=== PATIENT | female | born 1950 | race Caucasian/White ===

== ENCOUNTER → 2024-11-10 | Outpatient (CLI) | payer OTHER, SELFPAY ==
--- NOTE | 2024-11-10 11:21 | XR_ITS ---
Examination: Wrist, left 3 views Technique: Wrist AP, oblique, lateral 3 views Date and time of exam: November 10, 2024 1306 hours INDICATIONS: Left wrist pain beginning 6 months ago. FINDINGS: Severe osteopenia Advanced narrowing first carpometacarpal joint Mild narrowing radiocarpal joint No fracture No opaque foreign bodies IMPRESSION: Advanced narrowing first carpometacarpal joint
--- NOTE | 2024-11-10 11:30 | XR_ITS ---
Examination: Ultrasound soft tissue left extremity TECHNIQUE: Grayscale sonographic images soft tissue left arm Exam date and time: November 10, 2024 1122 hours INDICATIONS: Pain and swelling palpable lump posterior left wrist note is beginning 6 months ago after shoulder fracture FINDINGS: No cystic or solid mass noted at the area concern IMPRESSION: No cystic or solid mass noted at the area concern, as clinically warranted, consider MRI right wrist without contrast follow-up
== END | disposition home or self-care (01) ==
PROVIDERS: PCP Nurse Practitioner Family; Referring Provider Nurse Practitioner Family; Visit Provider Nurse Practitioner Family
DX: S50.02XD Contusion of left elbow, subsequent encounter (principal); M25.832 Other specified joint disorders, left wrist; X58.XXXD Exposure to other specified factors, subsequent encounter
CPT/HCPCS: 73110; 76882

== ENCOUNTER → 2024-11-30 | Outpatient (CLI) | payer MEDICARE, BC, SELFPAY ==
--- NOTE | 2024-11-30 10:30 | XR_ITS ---
Examination: PA lateral chest 2 views TECHNIQUE: Upright PA lateral chest 2 views Exam date and time: November 30, 2024 1104 hours Comparison May 18, 2023 INDICATIONS: Coughing shortness of breath beginning 5 days ago FINDINGS: Partial visualization fracture humeral neck on the left, please see the shoulder report June 08, 2024 Mild heart failure, mild enlargement cardiac contour prominent vascular congestion or early perihilar edema Superimposed pneumonia in the right lung diffusely and left base IMPRESSION: Significant bilateral pneumonia Mild heart failure
== END | disposition home or self-care (01) ==
LOC: CDIM 10:17
PROVIDERS: PCP Nurse Practitioner Family; Referring Provider Nurse Practitioner Family; Visit Provider Nurse Practitioner Family
DX: J18.9 Pneumonia, unspecified organism (principal); I50.9 Heart failure, unspecified
CPT/HCPCS: 71046

== ENCOUNTER → 2024-12-08 | Outpatient (CLI) | payer OTHER, SELFPAY ==
--- NOTE | 2024-12-08 12:30 | XR_ITS ---
Examination: MRI left wrist, without contrast Date and time of exam: December 08, 2024 1225 hours INDICATIONS: Patient fell 7 months ago with injury to the wrist, persistent wrist pain numbness weakness Technique: Multiple axial sagittal and coronal images of the left wrist have been obtained with the Siemens high-resolution 1.5 Ebony MRI scanner. Images obtained include T2-weighted fat-suppressed sagittal sections, TR 3500, TE 46, T2 weighted coronal fat suppressed images, TR 3050, TE 84, T2-weighted transverse fat suppressed images, TR 3260, TE 63, proton density transverse images, TR 4720 TE 46, and T1 weighted coronal images, TR 560, TE 13. Findings: Advanced narrowing radiocarpal and intercarpal joints Moderate to advanced osteoarthritis first carpometacarpal joint Triangular fibrocartilage appears intact Cystic change in the navicular No occult fracture No ganglion cyst Flexor tendons unremarkable normal median nerve Extensor tendons intact IMPRESSION: Advanced narrowing radiocarpal and intercarpal joints Moderate to advanced osteoarthritis first carpometacarpal joint
== END | disposition home or self-care (01) ==
LOC: SMRI 11:55
PROVIDERS: PCP Nurse Practitioner Family; Referring Provider Nurse Practitioner Family; Visit Provider Nurse Practitioner Family
DX: M25.832 Other specified joint disorders, left wrist (principal); M18.12 Unilateral primary osteoarthritis of first carpometacarpal joint, left hand
CPT/HCPCS: 73221

== ENCOUNTER → 2024-12-18 | Outpatient (CLI) | payer MEDICARE, BC, SELFPAY ==
--- NOTE | 2024-12-18 16:43 | XR_ITS ---
Examination: PA lateral chest 2 views TECHNIQUE: Upright PA and lateral chest 2 views Date time: December 18, 2024 1704 hours Comparison November 30, 2024 INDICATIONS: Congestion 2 weeks, pneumonia on chest film November 30, 2024 FINDINGS: Mild pneumonia remains at the lung bases Mild enlargement cardiac contour Scarring versus atelectasis in the right lung Prominent osteopenia with old appearing fracture of the left humeral neck IMPRESSION: Mild bibasilar pneumonia remains No donovan pulmonary edema
== END | disposition home or self-care (01) ==
PROVIDERS: PCP Nurse Practitioner Family; Referring Provider Nurse Practitioner Family; Visit Provider Nurse Practitioner Family
DX: J15.9 Unspecified bacterial pneumonia (principal)
CPT/HCPCS: 71046

== ENCOUNTER → 2024-12-29 | Outpatient (CLI) | payer MEDICARE, BC, SELFPAY ==
[2024-12-29 09:44] LABS: Glucose Estimated Average 186 mg/dL (80-131); Hemoglobin A1C 8.1 % Hgb (4.8-6.0)
[2024-12-29 09:45] LABS: Basophils # (Auto) 0.1 Thou/mm3 (0.0-0.2); Basophils % (Auto) 1 % (0-2.5); Eosinophils # (Auto) 0.4 Thou/mm3 (0.0-0.5); Eosinophils % (Auto) 5 % (0-10); Hematocrit 38.2 % (36.0-46.0); Hemoglobin 12.7 g/dL (12.0-16.0); Immature Granulocytes % (Auto) 0 % (0-0); Immature Granulocytes Auto 0.02 Thou/mm3 (0.00-0.00); Lymphocytes # (Auto) 1.6 Thou/mm3 (1.0-4.8); Lymphocytes % (Auto) 25 % (10-50); Mean Corpuscular HGB Conc 33.2 g/dl (31.0-37.0); Mean Corpuscular Hemoglobin 29.1 pg (25.0-35.0); Mean Corpuscular Volume 88 fL (80-100); Monocytes # (Auto) 0.4 Thou/mm3 (0.0-0.8); Monocytes % (Auto) 7 % (0-12); Neutrophils # (Auto) 4.1 Thou/mm3 (1.8-7.7); Neutrophils % (Auto) 62 % (37-80); Nucleated Red Blood Cell % 0 /100 WBC (0); Platelet Count 207 Thou/mm3 (140-440); RDW Standard Deviation 42.5 fL (36.4-46.3); Red Blood Count 4.36 Miln/mm3 (4.00-5.20); White Blood Count 6.6 Thou/mm3 (3.6-11.0)
[2024-12-29 09:47] LABS: Vitamin B12 471 pg/mL (211-911); Vitamin D 25 Hydroxy Total 41.3 ng/mL (7.3-40.2)
[2024-12-29 09:55] LABS: Alanine Aminotransferase 17 U/L (10-49); Albumin, Serum 3.8 gm/dL (3.4-4.8); Albumin/Globulin Ratio 1.5 (1.2-2.2); Alkaline Phosphatase 69 U/L (46-116); Anion Gap 9 (7-16); Aspartate Amino Transferase 16 U/L (0-34); BUN/Creatinine Ratio 18 Ratio (12-20); Bilirubin,Total 0.6 mg/dL (0.3-1.2); Blood Urea Nitrogen 14 mg/dL (9-23); Calcium (Corrected) 9.2 mg/dL (8.5-10.1); Carbon Dioxide 28.2 mMol/L (20.0-31.0); Cardiac Risk Estimate 2.6 RATIO (3.7-5.6); Chloride 105 mMol/L (98-107); Cholesterol 164 mg/dL (132-200); Creatinine (Component) 0.8 mg/dL (0.6-1.3); Globulin 2.5 gm/dL (2.3-3.5); Glucose 182 mg/dL (74-106); HDL Cholesterol 62 mg/dL (40-60); LDL Cholesterol,Calculated 75 mg/dL (0-130); Osmolality,Calculated 288 (275-295); Potassium 4.9 mMol/L (3.4-5.1); Sodium 142 mMol/L (136-145); Total Protein 6.3 gm/dL (5.7-8.2); Triglycerides 134 mg/dL (30-150); eGFR > 60 See Note
[2024-12-29 10:00] LABS: Creatinine MALB Rnd Ur 85 mg/dL (30-125); Microalbumin, Random Urine < 3 mg/L (0-300)
== END | disposition home or self-care (01) ==
LOC: COPL 08:26
PROVIDERS: PCP Nurse Practitioner Family; Referring Provider Internal Medicine Endocrinology, Diabetes & Metabolism; Visit Provider Internal Medicine Endocrinology, Diabetes & Metabolism
DX: E11.65 Type 2 diabetes mellitus with hyperglycemia (principal); I10 Essential (primary) hypertension; E78.5 Hyperlipidemia, unspecified
CPT/HCPCS: 36415; 80053; 80061; 82043; 82306; 82570; 82607; 83036; 85025

== ENCOUNTER → 2025-01-19 | Outpatient (CLI) | payer MEDICARE, SELFPAY ==
--- NOTE | 2025-01-19 | XR_ITS ---
Examination: PA lateral chest 2 views TECHNIQUE: Upright PA lateral chest 2 views Date and time: January 19, 2025 1138 hours Comparison December 18, 2024 INDICATIONS: Mild bibasilar pneumonia on chest film November 2024 FINDINGS: Scarring versus atelectasis in the right upper lobe Mild prominence left ventricle No current pneumonia Prominent osteopenia IMPRESSION: No current pneumonia
[2025-01-19 13:07] LABS: Thyroid Stimulating Hormone 1.17 uIU/mL (0.55-4.78)
== END | disposition home or self-care (01) ==
PROVIDERS: PCP Nurse Practitioner Family; Referring Provider Nurse Practitioner Family; Visit Provider Radiology Diagnostic Radiology
DX: J15.9 Unspecified bacterial pneumonia (principal); Z13.29 Encounter for screening for other suspected endocrine disorder
CPT/HCPCS: 36415; 71046; 84439; 84443

== ENCOUNTER → 2025-02-05 | Outpatient (CLI) | payer MEDICARE, SELFPAY ==
--- NOTE | 2025-02-05 09:45 | XR_ITS ---
Examination: Diagnostic digital mammography, bilateral Computer aided detection 3-D breast Tomosynthesis, bilateral Date and time of exam: February 05, 2025 0941 hours Compared to mammograms dating to February 23, 2017 INDICATIONS: Mammogram March 27, 2024 calcifications in nodule in the outer left breast Technique: Nonmagnified MLO, CC views of the breasts to been obtained, reconstructed from 3-D Tomosynthesis images. R2 computer aided detection program utilized for evaluation of suspicious masses and/or abnormal calcifications. 3-D Tomosynthesis images obtained. Findings: Scattered areas of fibroglandular density. Calcifications in degenerating fibroadenoma outer left breast No interval suspicious masses Impression: BI-RADS Category 2: Benign findings Recommend yearly follow-up mammography
== END | disposition home or self-care (01) ==
LOC: CDIM 09:20
PROVIDERS: Referring Provider Nurse Practitioner Family; Visit Provider Nurse Practitioner Family
DX: R92.323 Mammographic fibroglandular density, bilateral breasts (principal); R92.1 Mammographic calcification found on diagnostic imaging of breast
CPT/HCPCS: 77062; 77066; G0279

== ENCOUNTER 2025-03-27 11:32 | Emergency (ER) | payer MEDICARE, SELFPAY ==
[2025-03-27 11:49] VITALS: BP 145/84; PULSE 108; RESP 18; TEMP 36.8; O2SAT 93; BMI 34.3
--- NOTE | 2025-03-27 11:53 | XR_ITS ---
Examination: CT abdomen and pelvis without contrast. Coronal 3-D reconstructions. Sagittal 2-D reconstructions. Date and time of exam:March 27, 2025 1253 hours, comparison September 26, 2020 INDICATIONS: Lower abdominal pain with burning with urination today CTDI: vol (mGy): 13.0 DLP: (mGycm): 757 Technique: Axial images of the abdomen have been obtained, 3 mm slice thickness Intravenous contrast material has not been administered. Low dose protocols were performed. One or more of the following dose reduction techniques were used; automated exposure control, adjustment of the mA and/or KV according to patient size, use of iterative reconstruction technique. Findings: Retrocardiac gastric hernia No focal liver or splenic lesions Contracted gallbladder No pancreatic or adrenal mass Prominent scarring right kidney No renal or ureteral calculi, no hydronephrosis Abdominal aortic calcification no aneurysmal dilatation Normal appendix No bowel obstruction No diverticulitis Abundant stool in the rectum Absent uterus No pelvic mass Bladder intact Grade 1 spondylolisthesis L5 on S1 Severe osteopenia with chronic osteoporotic compression L1 IMPRESSION: Prominent scarring right kidney No renal or ureteral calculi, no hydronephrosis Normal appendix Abundant stool in the rectum No bladder mass or bladder calculi
--- NOTE | 2025-03-27 11:53 | EDRME_ITS ---
Rapid Medical Screening Exam [facility] Arrival date/time: 03/27/25 11:32 74-year-old female presents to the department today for complaints of heartburn intermittently for last couple of weeks as well as abdominal pain Chief Complaint: Urogenital-Female Vital signs: Vital Signs Temperature 98.3 F 03/27/25 11:49 Pulse Rate 108 H 03/27/25 11:49 Respiratory Rate 18 03/27/25 11:49 Blood Pressure 145/84 H 03/27/25 11:49 Pulse Oximetry (%) 93 L 03/27/25 11:49 Oxygen Delivery Method Room Air 03/27/25 11:49
--- NOTE | 2025-03-27 11:53 | EKG_ITS ---
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
[2025-03-27 12:58] LABS: Basophils # (Auto) 0.1 Thou/mm3 (0.0-0.2); Basophils % (Auto) 0 % (0-2.5); Eosinophils # (Auto) 0.0 Thou/mm3 (0.0-0.5); Eosinophils % (Auto) 0 % (0-10); Hematocrit 43.4 % (36.0-46.0); Hemoglobin 14.5 g/dL (12.0-16.0); Immature Granulocytes Auto 0.08 Thou/mm3 (0.00-0.00); Lymphocytes # (Auto) 0.7 Thou/mm3 (1.0-4.8); Lymphocytes % (Auto) 3 % (10-50); Mean Corpuscular HGB Conc 33.4 g/dl (31.0-37.0); Mean Corpuscular Hemoglobin 29.5 pg (25.0-35.0); Mean Corpuscular Volume 88 fL (80-100); Monocytes # (Auto) 0.8 Thou/mm3 (0.0-0.8); Monocytes % (Auto) 4 % (0-12); Neutrophils # (Auto) 20.5 Thou/mm3 (1.8-7.7); Neutrophils % (Auto) 93 % (37-80); Nucleated Red Blood Cell # 0.00 Thou/mm3 (0.00-0.00); Nucleated Red Blood Cell % 0 /100 WBC (0); Platelet Count 214 Thou/mm3 (140-440); RDW Standard Deviation 45.0 fL (36.4-46.3); Red Blood Count 4.91 Miln/mm3 (4.00-5.20); White Blood Count 22.2 Thou/mm3 (3.6-11.0)
[2025-03-27 13:15] LABS: Collection Type, Urine Clean Catch
[2025-03-27 13:16] LABS: Alanine Aminotransferase 20 U/L (10-49); Albumin, Serum 4.3 gm/dL (3.4-4.8); Albumin/Globulin Ratio 1.8 (1.2-2.2); Alkaline Phosphatase 74 U/L (46-116); Anion Gap 13 (7-16); Aspartate Amino Transferase 18 U/L (0-34); BUN/Creatinine Ratio 14 Ratio (12-20); Bilirubin,Total 0.9 mg/dL (0.3-1.2); Blood Urea Nitrogen 13 mg/dL (9-23); Calcium 10.4 mg/dL (8.3-10.6); Calcium (Corrected) 10.4 mg/dL (8.5-10.1); Carbon Dioxide 26.0 mMol/L (20.0-31.0); Chloride 100 mMol/L (98-107); Creatinine (Component) 0.9 mg/dL (0.6-1.3); Estimated Creatinine Clearance 58.0 mL/min (>60); Globulin 2.4 gm/dL (2.3-3.5); Glucose 229 mg/dL (74-106); Lipase 18 U/L (12-53); Osmolality,Calculated 284 (275-295); Potassium 4.4 mMol/L (3.4-5.1); Sodium 139 mMol/L (136-145); Total Protein 6.7 gm/dL (5.7-8.2); Troponin I < 0.020 ng/mL (0.0-0.045); eGFR > 60 See Note
[2025-03-27 13:37] LABS: Bacteria,Urine Rare; Bilirubin,Urine Negative (Negative); Blood,Urine Negative (Negative); Clarity,Urine Clear (Clear/Hazy); Color,Urine Lt-Yellow (Lt Yel-Yel); Glucose, Urine 4+ (Negative); Ketones,Urine 1+ (Negative); Leukocyte Esterase,Urine Negative (Negative); Nitrite,Urine Positive (Negative); PH,Urine 5.5 (5.0-7.0); Protein,Urine Negative (Neg - Trace); RBC,Urine 3 /hpf (0-3); Specific Gravity,Urine 1.032 (1.001-1.035); Squamous Epithelial Cell,Urine 4 /hpf (0-5); Urobilinogen,Urine Negative mg/dL (0.0-1.0); WBC,Urine 3 /hpf (0-5)
[2025-03-27 13:43] LABS: Culture Indicated,Urine Yes
[2025-03-27 16:09] VITALS: BP 137/81; PULSE 92; RESP 17; TEMP 36.8; O2SAT 94
--- NOTE | 2025-03-27 18:52 | PD.EDFMALE ---
ED Female Urogenital RME/HPI General Chief complaint: Urogenital-Female Stated complaint: Heartburn, burning with urination, vomiting Time Seen by Provider: 03/27/25 17:56 Arrival date/time: 03/27/25 11:32 RME / HPI RME / HPI Narrative: 03/27/25 11:32 74-year-old female presents to the department today for complaints of heartburn intermittently for last couple of weeks as well as abdominal pain -------- See MDM for HPI documentation. Related Data Home Medications ?Medication ?Instructions ?Recorded ?Confirmed losartan 25 mg tablet 25 mg PO QDAY 03/27/18 01/27/23 pantoprazole 20 mg tablet,delayed 20 mg PO BID 03/27/18 01/27/23 release metformin 500 mg tablet 1,000 mg PO BID 02/15/19 01/27/23 allopurinol 300 mg tablet 300 mg PO DAILY 11/25/20 01/27/23 montelukast 10 mg tablet 10 mg PO HS 11/25/20 01/27/23 atorvastatin 40 mg tablet 40 mg PO QDAY 01/27/23 01/27/23 cholecalciferol (vitamin D3) 10 10 mcg PO QDAY 01/27/23 01/27/23 mcg (400 unit) capsule (Vitamin D3) empagliflozin 25 mg tablet 25 mg PO QDAY 01/27/23 01/27/23 (Jardiance) loratadine 10 mg tablet 10 mg PO QDAY 01/27/23 01/27/23 Allergies Allergy/AdvReac Type Severity Reaction Status Date / Time aspirin Allergy Severe Anaphylaxis Verified 03/27/25 11:36 ibuprofen Allergy Severe Anaphylaxis Verified 03/27/25 11:36 NSAIDS (Non-Steroidal Allergy Severe Anaphylaxis Verified 03/27/25 11:36 Anti-Inflamma Review of Systems Review of Systems Systems Reviewed: All systems reviewed, normal except as documented Past Medical History Past Medical History NEUROLOGIC: Negative Neurological Disorders or Seizures CARDIAC: Positive Cardiac Disorders, Hypercholesterolemia, Deep Vein Thrombosis, Hypertension and Varicose Veins; Negative Congestive Heart Failure, Edema or Cellulitis RESPIRATORY: Positive Asthma; Negative Chronic Obstructive Pulmonary Disease (COPD), Tuberculosis or Sleep Apnea GASTROINTESTINAL: Positive Gastrointestinal Disorders (COLON SURG 2000), Ulcer, Colorectal Cancer, Hiatal Hernia, Gastroesophageal Reflux Disease and Obesity; Negative Hepatitis GENITOURINARY: Negative Genitourinary Disorders or Renal Disease REPRODUCTIVE: Positive Previous Pregnancies MUSCULOSKELETAL: Positive Musculoskeletal Disorders, Arthritis and Gout ENDOCRINE: Positive Endocrine Disorders and Diabetes Mellitus Type 2; Negative Diabetes Mellitus Type 1 HEMATOLOGIC: Positive Blood Disorders and Clotting Problems OTHER HISTORY: Positive Hospitalization, Autoimmune Disease, Chicken Pox, Measles, Cancer and Colorectal Cancer; Negative Shingles, Falls, Blood Transfusions, Blood Transfusion Reaction, Anesthesia Reactions, Chemotherapy, Radiation Therapy, MRSA or Mumps Family History FAMILY HISTORY: Positive Family Psychiatric Problems (FATHER (DEPRESSION,ANXIETY)), Family Respiratory Disorders (FATHER (COPD)), Family Cardiac Disorders (FATHER (MINI STROKE),MOTHER (HEART,HTN)), Family Cancer (MOTHER (BRAIN)) and Family Surgery (MOTHER,FATHER,BROTHER); Negative Family Gastrointestinal Problems or Family Anesthesia Reaction Surgical History SURGICAL: Positive Abdominal Surgery, Bowel Surgery (partial colon removal) and Hysterectomy; Negative Cardiac Surgery, Pacemaker, Endocrine Surgery or Joint Replacement Social History SMOKING STATUS: Never smoker SUBSTANCE USE: does not use ED Exam Narrative Physical exam: See MDM for physical exam documentation. Course Quality Measures none Orders Category Date Time Status EKG (ED ONLY) *Do not use* NOW Care 03/27/25 11:[address] abdomen pelvis wo con Stat Exams 03/27/25 11:53 Completed EKG (ED Only) Stat Exams 03/27/25 11:53 Draft CBC Stat Lab 03/27/25 12:20 Completed Comprehensive Metabolic Panel Stat Lab 03/27/25 12:20 Completed Lipase Stat Lab 03/27/25 12:20 Completed Troponin I Stat Lab 03/27/25 12:20 Completed UA, C/S IF [Urinalysis, C/S if Indicated] Stat Lab 03/27/25 13:02 Completed Urine Culture Stat Lab 03/27/25 13:02 Received Vital Signs Vital signs: Vital Signs Temperature 98.3 F 03/27/25 11:49 Pulse Rate 108 H 03/27/25 11:49 Respiratory Rate 18 03/27/25 11:49 Blood Pressure 145/84 H 03/27/25 11:49 Pulse Oximetry (%) 93 L 03/27/25 11:49 Oxygen Delivery Method Room Air 03/27/25 11:49 Urogenital - Female MDM Narrative MDM Narrative:: This section includes all my notes and documentations, including HPI, PE, and ED course. Mu Farris MD HPI: ROS: All negative except as documented in HPI. Physical Exam: General: Alert and oriented. No acute distress when remaining still. Eyes: Conjunctivae and lids clear. ENT: No nasal congestion. Neck: Supple. Heart: RRR. Lungs: No respiratory distress. Good air movement. No rhonchi, wheezing, rales. Abdomen: Soft and nontender. Normal bowel sounds. No distension. No rebound or guarding. Back: No CVA tenderness. Skin: Warm and dry. Neuro: Alert and oriented X 3. I reviewed all diagnostic test results. My interpretation of the EKG is My review of the CT abdomen pelvis report is NAD. Blood tests remarkable for WBC 22.2, Glucose 229. UA remarkable for positive nitrites and rare bacteria. At this point, diagnoses include Treatment here included Significant improvement Not yet done: I discussed the case with our hospitalist. About the presentation and exam and diagnostics and treatments here. And need of further care in the hospital. Will accept the patient. Not yet done: Based on my best medical judgment, made decision no further evaluation or treatment indicated at this time. Patient understands and agrees to the discharge instructions customized and printed, see below. Mu Farris MD Patient data External records reviewed:: [facility] previous records (Per chart review, patient has no relevant previous ED visits.) Clinical information provided by:: patient Social determinants that could affect healthcare access:: none Patient has the following chronic illnesses:: DM, HTN, HLD, asthma How is presenting disease/condition affected by chronic disease/condition?: uneffected by Evaluation data The following diagnostics were reviewed and interpreted by me:: lab results and radiology exam(s) Lab and/or radiology exams considered but not ordered:: none Discharge Plan Prescriptions/Referrals Prescriptions/Med Rec: No Action pantoprazole 20 mg Tablet,Delayed Release (Dr/Ec) 20 mg PO BID losartan 25 mg Tablet 25 mg PO QDAY metformin 500 mg Tablet 1,000 mg PO BID montelukast 10 mg tablet 10 mg PO HS Patient Comments: TAKE 1 TABLET BY MOUTH ONCE DAILY AT BEDTIME FOR 90 DAYS allopurinol 300 mg tablet 300 mg PO DAILY Patient Comments: TAKE 1 TABLET BY MOUTH ONCE DAILY atorvastatin 40 mg tablet 40 mg PO QDAY Patient Comments: TAKE 1 TABLET BY MOUTH EVERY EVENING loratadine 10 mg tablet 10 mg PO QDAY Patient Comments: TAKE 1 TABLET BY MOUTH EVERY DAY IN THE MORNING Jardiance 25 mg tablet 25 mg PO QDAY Patient Comments: TAKE 1 TABLET BY MOUTH EVERY DAY IN THE MORNING cholecalciferol (vitamin D3) [Vitamin D3] 10 mcg (400 unit) Capsule 10 mcg PO QDAY Referrals: Carmelita Land, CUSTOMER SUCCESS REPRESENTATIVE [Primary Care Provider] - In 1 week Patient/Caregiver Discharge Instructions Print Language: Polish
--- NOTE | 2025-03-27 19:05 | PD.EDABDPN ---
ED Abdominal Pain RME/HPI General Chief Complaint: Urogenital-Female Stated complaint: Heartburn, burning with urination, vomiting Time seen by provider: 03/27/25 17:56 Arrival date/time: 03/27/25 11:32 RME / HPI RME / HPI narrative: 03/27/25 11:32 74-year-old female presents to the department today for complaints of heartburn intermittently for last couple of weeks as well as abdominal pain -------- See MDM for HPI documentation. Related Data Home Medications ?Medication ?Instructions ?Recorded ?Confirmed losartan 25 mg tablet 25 mg PO QDAY 03/27/18 01/27/23 pantoprazole 20 mg tablet,delayed 20 mg PO BID 03/27/18 01/27/23 release metformin 500 mg tablet 1,000 mg PO BID 02/15/19 01/27/23 allopurinol 300 mg tablet 300 mg PO DAILY 11/25/20 01/27/23 montelukast 10 mg tablet 10 mg PO HS 11/25/20 01/27/23 atorvastatin 40 mg tablet 40 mg PO QDAY 01/27/23 01/27/23 cholecalciferol (vitamin D3) 10 10 mcg PO QDAY 01/27/23 01/27/23 mcg (400 unit) capsule (Vitamin D3) empagliflozin 25 mg tablet 25 mg PO QDAY 01/27/23 01/27/23 (Jardiance) loratadine 10 mg tablet 10 mg PO QDAY 01/27/23 01/27/23 Previous Rx's ?Medication ?Instructions ?Recorded famotidine 40 mg tablet 40 mg PO BID #60 tabs 03/27/25 Allergies Allergy/AdvReac Type Severity Reaction Status Date / Time aspirin Allergy Severe Anaphylaxis Verified 03/27/25 11:36 ibuprofen Allergy Severe Anaphylaxis Verified 03/27/25 11:36 NSAIDS (Non-Steroidal Allergy Severe Anaphylaxis Verified 03/27/25 11:36 Anti-Inflamma Review of Systems Review of Systems Systems Reviewed: All systems reviewed, normal except as documented ED Exam Narrative Physical exam: See MDM for physical exam documentation. Course Quality Measures none Orders Category Date Time Status EKG (ED ONLY) *Do not use* NOW Care 03/27/25 11:[address] abdomen pelvis wo con Stat Exams 03/27/25 11:53 Completed EKG (ED Only) Stat Exams 03/27/25 11:53 Draft CBC Stat Lab 03/27/25 12:20 Completed Comprehensive Metabolic Panel Stat Lab 03/27/25 12:20 Completed Lipase Stat Lab 03/27/25 12:20 Completed Troponin I Stat Lab 03/27/25 12:20 Completed UA, C/S IF [Urinalysis, C/S if Indicated] Stat Lab 03/27/25 13:02 Completed Urine Culture Stat Lab 03/27/25 13:02 Received Vital Signs Vital signs: Vital Signs Temperature 98.3 F 03/27/25 11:49 Pulse Rate 108 H 03/27/25 11:49 Respiratory Rate 18 03/27/25 11:49 Blood Pressure 145/84 H 03/27/25 11:49 Pulse Oximetry (%) 93 L 03/27/25 11:49 Oxygen Delivery Method Room Air 03/27/25 11:49 Abdominal Pain MDM MDM Narrative MDM Narrative:: This section includes all my notes and documentations, including HPI, PE, and ED course. Mu Farris MD HPI: 74yo female here with possible heartburn. A few hours ago, she had an episode of burning chest pain and nausea and diaphoresis. No syncope or near syncope. No speech or visual impairment. No loss of power in the arms or legs. No other complaints. ROS: All negative except as documented in HPI. Physical Exam: General: Alert and oriented. No acute distress when remaining still. Eyes: Conjunctivae and lids clear. ENT: No nasal congestion. Neck: Supple. Heart: RRR. Lungs: No respiratory distress. Good air movement. No rhonchi, wheezing, rales. Abdomen: Soft mild epigastric tenderness. Normal bowel sounds. No distension. No rebound or guarding. Back: No CVA tenderness. Skin: Warm and dry. Neuro: Alert and oriented X 3. I reviewed all diagnostic test results. My interpretation of the EKG is sinus rhythm with no acute ST?T changes. My review of the CT abdomen pelvis report is NAD. Blood tests remarkable for WBC 22.2, Glucose 229. UA didn't show UTI. At this point, diagnoses include GERD. Currently, she feels completely back to normal. Prescribed famotidine I recommend a more outpatient workup. Based on my best medical judgment, made decision no further evaluation or treatment indicated at this time. Patient understands and agrees to the discharge instructions customized and printed, see below. Discharge Instructions from Dr. Farris printed for you: 1. After extensive evaluation, there is no life-threatening condition. Such as heart attack. 2. And there is no serious infection. Such as UTI or kidney infection. 3. For your GERD symptoms, add famotidine twice daily as prescribed. 4. See a private doctor on 03/29/2025 for recheck and further care. Ask to review all test results and official radiology reports, to make sure you receive all necessary follow-ups and monitoring, including repeat white blood cell count and sugar level. To make sure there is no serious underlying heart condition, ask to help you get more tests for your heart that cannot be done here in the ER. Such as Holter Monitor (cardiac monitoring at home from a day to even a month), heart stress test (on treadmill or with medication), echocardiogram (imaging of your heart structures), heart catherization (checking for blockages in your heart arteries), and a referral to see a Deputy Director. To make sure there is no serious intra-abdominal condition, ask for help with more investigation not available here in the ER. Such as EGD or scoping the stomach, colonoscopy or scoping the colon, and referral to see box hinge and lock attacher. 5. Seek immediate medical care with worsening or with any concerns. Mu Farris MD Patient data External records reviewed:: [facility] previous records (Per chart review, patient has no relevant previous ED visits.) Clinical information provided by:: patient Social determinants that could affect healthcare access:: none Patient has the following chronic illnesses:: DM, HTN, HLD, asthma How is presenting disease/condition affected by chronic disease/condition?: uneffected by Evaluation data The following diagnostics were reviewed and interpreted by me:: lab results, radiology exam(s) and EKG tracing(s) Lab and/or radiology exams considered but not ordered:: none Interpretation Summary: I reviewed all diagnostic test results. My interpretation of the EKG is My review of the CT abdomen pelvis report is NAD. Blood tests remarkable for WBC 22.2, Glucose 229. UA didn't show UTI. Medications / Prescriptions Medications or Prescriptions considered but not ordered:: none Medication administrations:: none Consultations Consultation(s) initiated? (list below): No Diagnosis Differential diagnosis abdominal pain: acute appendicitis, calculus of kidney, constipation, diverticulitis, pancreatitis, small bowel obstruction and other (gastritis, GERD, biliary colic) Most likely diagnosis given after review of the tests above:: GERD Admission Indicated Admission indicated?: not indicated Explain why admission is indicated or not indicated:: With no condition needing emergent intervention, there was no indication for admission. Admission Request Was there a request for admission?: No Disposition Plan Disposition Plan: Discharge Discharge Attestation Discharge Attestation: The patient and all family members were given an opportunity to ask questions and understood the discharge instructions. Discharge instructions specifically effects, indications for sooner follow up or return to the emergency department, and the expected course of current diagnosis. Patient condition: Stable Discharge Plan Plan Patient Disposition: HOME (Self Care) Prescriptions/Referrals Prescriptions/Med Rec: New famotidine 40 mg tablet 40 mg PO BID Qty: 60 0RF No Action pantoprazole 20 mg Tablet,Delayed Release (Dr/Ec) 20 mg PO BID losartan 25 mg Tablet 25 mg PO QDAY metformin 500 mg Tablet 1,000 mg PO BID montelukast 10 mg tablet 10 mg PO HS Patient Comments: TAKE 1 TABLET BY MOUTH ONCE DAILY AT BEDTIME FOR 90 DAYS allopurinol 300 mg tablet 300 mg PO DAILY Patient Comments: TAKE 1 TABLET BY MOUTH ONCE DAILY atorvastatin 40 mg tablet 40 mg PO QDAY Patient Comments: TAKE 1 TABLET BY MOUTH EVERY EVENING loratadine 10 mg tablet 10 mg PO QDAY Patient Comments: TAKE 1 TABLET BY MOUTH EVERY DAY IN THE MORNING Jardiance 25 mg tablet 25 mg PO QDAY Patient Comments: TAKE 1 TABLET BY MOUTH EVERY DAY IN THE MORNING cholecalciferol (vitamin D3) [Vitamin D3] 10 mcg (400 unit) Capsule 10 mcg PO QDAY Referrals: Carmelita Land NP [Primary Care Provider] - In 1 week Problem List Clinical Impression: GERD (gastroesophageal reflux disease) Patient/Caregiver Discharge Instructions Discharge Activity: activity as tolerated Education Materials: ED GERD (Adult) Additional Instructions: Discharge Instructions from Dr. Farris printed for you: 1. After extensive evaluation, there is no life-threatening condition. Such as heart attack. 2. And there is no serious infection. Such as UTI or kidney infection. 3. For your GERD symptoms, add famotidine twice daily as prescribed. 4. See a private doctor on 03/29/2025 for recheck and further care. Ask to review all test results and official radiology reports, to make sure you receive all necessary follow-ups and monitoring, including repeat white blood cell count and sugar level. To make sure there is no serious underlying heart condition, ask to help you get more tests for your heart that cannot be done here in the ER. Such as Holter Monitor (cardiac monitoring at home from a day to even a month), heart stress test (on treadmill or with medication), echocardiogram (imaging of your heart structures), heart catherization (checking for blockages in your heart arteries), and a referral to see a Deputy Director. To make sure there is no serious intra-abdominal condition, ask for help with more investigation not available here in the ER. Such as EGD or scoping the stomach, colonoscopy or scoping the colon, and referral to see box hinge and lock attacher. 5. Seek immediate medical care with worsening or with any concerns. Print Language: Pashto Stand Alone Forms: Pamela Award Info., Work/School Release, Patient Portal Info Letter
== END 2025-03-27 19:20 | disposition home or self-care (01) ==
PROVIDERS: Nurse Practitioner Primary Care; Emergency Provider Emergency Medicine; PCP Nurse Practitioner Family
DX: K21.9 Gastro-esophageal reflux disease without esophagitis (principal)
CPT/HCPCS: 36415; 74176; 80053; 81001; 83690; 84484; 85025; 87077; 87086; 87186; 93005; 99283